=== PATIENT | female | born 1975 | race African-American/Black ===

== ENCOUNTER 2021-05-16 09:18 | Emergency (ER) | payer MEDICAID ==
[~2021-05-16] VITALS: Ht 170.2 cm; Wt 80.0 kg
[~2021-05-16 09:18] MED LIST: ERYT-109 PO; FERR325C PO; IBUP-779 PO; METR500T PO
[2021-05-16] MEDS ORDERED: MAGNESIUM/ALUMINUM HYDROXIDE/SIMETHICONE 30ML UDC PO ONE (09:45)
[2021-05-16] MEDS ORDERED: DICYCLOMINE 10 MG/5 ML ORAL SYR PO ONE (09:45)
[2021-05-16 09:57] LABS: BASOPHILS % 1.2 % (0.0-2.0); EOSINOPHILS % 2.1 % (0.0-5.0); HEMATOCRIT. 39.3 % (36.0-48.0); HEMOGLOBIN. 13.5 g/dL (12.0-16.0); LYMPHOCYTES % 43.2 % (20.0-50.0); MEAN CORPUSCULAR HEMOGLOBIN 30.6 pg (28.0-32.0); MEAN PLATELET VOLUME 7.6 fl (7.4-10.4); MONOCYTES % 6.3 % (2.0-8.0); NEUTROPHILS % 47.2 % (40.0-76.0); PLATELET 271 x1000/uL (130-400); RED BLOOD CELL COUNT 4.42 mill/uL (4.2-5.4); RED CELL DISTRIBUTION WIDTH 13.6 % (11.6-14.6)
[2021-05-16 10:01] LABS: CHLORIDE 110 mEq/L (98-107)
[2021-05-16] MEDS ORDERED: OMEP40CA20 MT (11:01)
[2021-05-16 11:14] VITALS: BP 120/83
== END 2021-05-16 11:27 | disposition home or self-care (01) ==
LOC: ER 09:18
DX: R07.9 Chest pain, unspecified (principal); J45.909 Unspecified asthma, uncomplicated; E11.9 Type 2 diabetes mellitus without complications; K21.9 Gastro-esophageal reflux disease without esophagitis; Z88.0 Allergy status to penicillin
CPT/HCPCS: 36415; 71045; 80053; 84484; 85025; 93005; 99285; Z7610

== ENCOUNTER 2022-11-24 07:59 | Emergency (ER) | payer MEDICAID ==
[~2022-11-24] VITALS: Ht 170.2 cm; Wt 86.0 kg
[~2022-11-24 07:59] MED LIST changes: -ERYT-109 PO; +ERYT-141 PO; +OMEP40CA20 MT
[2022-11-24] MEDS ORDERED: IPRATROPIUM BROMIDE (0.02%) 0.5MG/2.5ML NEB HHN STA (10:27)
[2022-11-24] MEDS ORDERED: ALBUTEROL (0.083%) 2.5MG/3ML NEB HHN STA (10:27)
[2022-11-24] MEDS ORDERED: DEXAMETHASONE 2MG TABLET PO ONE (10:30)
[2022-11-24 11:05] VITALS: PULSE 78; RESP 20; O2SAT 99
[2022-11-24] MEDS ORDERED: SULF1TAB48 MT (12:54)
[2022-11-24 14:20] VITALS: BP 139/85; PULSE 89; RESP 18; TEMP 98.6
== END 2022-11-24 14:21 | disposition home or self-care (01) ==
LOC: ER 07:59
DX: J45.901 Unspecified asthma with (acute) exacerbation (principal); L03.115 Cellulitis of right lower limb; B34.9 Viral infection, unspecified; E11.9 Type 2 diabetes mellitus without complications; K21.9 Gastro-esophageal reflux disease without esophagitis; Z88.0 Allergy status to penicillin
CPT/HCPCS: 71046; 94640; 99283; J8540; Z7610 ×3